=== PATIENT | male | born 1960 | race Caucasian/White ===

== ENCOUNTER 2020-04-30 08:57 | Outpatient (CLI) | payer MEDICARE, MEDICAID, SELFPAY ==
--- NOTE | ~2020-04-30 | NM_ITS ---
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 The patient was infused intravenously with Lexiscan (regadenoson). Then, 30 mCi Tc99m tet rofosmin (Myoview) was administered intravenously, and stress images were obtained. Data was reconstr ucted into short axis and horizontal and vertical long axis SPECT images. Gated SPECT images were als o obtained. COMPARISON: None. FINDINGS: There is no definite reversible or fixed perfusion abnormality to suggest ischemia or infar ction. There is no segmental wall motion abnormality. Left ventricular ejection fraction measures 5 6%. IMPRESSION: 1. No definite ischemia or infarct. 2. Decreased left ventricular ejection fraction measuring 56%. Reviewed, dictated and finalized at location A. R MAT MACHINE OPERATOR
--- NOTE | 2020-04-30 09:19 | EST_ITS ---
Patient Info Name: Geraldo Merida Age: 59 years : 1960 Gender: Male Ht: 72 in Wt: 290 lbs BSA: 2.64 m2 Exam Date: 04/30/2020 10:06 AM Exam Location: [facility] Stress Patient Status: Outpatient Admit Date: 04/30/2020 Staff Ordering Physician: Mann Xiong APRN Attending Provider: Mann Xiong APRN Exercise Technologist: Natalie Carlos RDCS Exercise Physician: Aquilino Magallon MD Exam Type: CA stress shiraz w NM Study Info Indications R07.9 - Chest pain, unspecified A regadenoson stress test was performed. Summary 1. Please correlate with nuclear medicine images, reported separately. 2. No abnormal ST-T wave changes with lexiscan. Protocol: Lexiscan Stress ECG Details Stage: REST Duration (min): 5 min : 31 sec HR (bpm): 90 SBP (mmHg): 149 DBP (mmHg): 79 Stage: REST Duration (min): 15 min : 12 sec HR (bpm): 90 SBP (mmHg): 149 DBP (mmHg): 79 Stage: STAGE 1 Duration (min): 1 min : 0 sec HR (bpm): 96 SBP (mmHg): 151 DBP (mmHg): 55 Stage: RECOVERY Duration (min): 1 min : 0 sec HR (bpm): 98 SBP (mmHg): 133 DBP (mmHg): 60 Stage: RECOVERY Duration (min): 2 min : 0 sec HR (bpm): 99 SBP (mmHg): 133 DBP (mmHg): 60 Stage: RECOVERY Duration (min): 3 min : 0 sec HR (bpm): 99 SBP (mmHg): 131 DBP (mmHg): 64 Stage: RECOVERY Duration (min): 3 min : 28 sec HR (bpm): 98 SBP (mmHg): 131 DBP (mmHg): 64 Rest HR: 90 bpm Peak HR: 100 bpm Rest Sys BP: 149 mmHg Peak Sys BP: 151 mmHg Max Pred HR: 160 bpm % Max Pred HR: 63 % Target HR: 136 bpm Max RPP: 15,100 bpm*mmHg Target HR Summary: Hemodynamic response to exercise was normal BP Response: Normal blood pressure response Termination Reason: Completed protocol Cardiac Symptoms: None Total Time: 1 min : 0 sec Rest Pate BP: 79 mmHg Peak Pate BP: 55 mmHg Total Dose: 0.4 mg Resting ECG Normal sinus rhythm. Stress ECG No abnormal ST/T wave changes with exercise. Arrhythmias None. Report Signatures
== END 2020-04-30 08:58 | disposition home or self-care (01) ==
PROVIDERS: Visit Provider Nurse Practitioner Family
DX: J44.9 Chronic obstructive pulmonary disease, unspecified (principal); R07.89 Other chest pain
CPT/HCPCS: 78452; 93017; A9502; J2785

== ENCOUNTER 2020-05-13 13:52 | Outpatient (CLI) | payer MEDICARE, MEDICAID, SELFPAY ==
[2020-05-13] VITALS (7 sets, daily range): PULSE 98–126; O2SAT 85–91
--- NOTE | 2020-05-13 14:18 | HOMEO2EVAL ---
Home Oxygen Evaluation RC: Home Oxygen (O2) Evaluation Start: 05/13/20 14:14 Freq: Status: Active Protocol: RPE Activity Type Activity Date Activity User E-Sign Co-Sign Detail Recorded Client Recorded Date Recorded By Document 05/13/20 13:30 [email or web address] [email or web address] 05/13/20 14:18 DJO Document 05/13/20 13:35 [email or web address] [email or web address] 05/13/20 14:18 DJO Document 05/13/20 13:40 [email or web address] [email or web address] 05/13/20 14:18 DJO Document 05/13/20 13:45 [email or web address] 05/13/20 14:18 DJO Document 05/13/20 13:50 [email or web address] [email or web address] 05/13/20 14:18 DJO Document 05/13/20 13:55 [email or web address] [email or web address] 05/13/20 14:18 DJO Document 05/13/20 14:10 [email or web address] [email or web address] 05/13/20 14:18 DJO 05/13/20 05/13/20 05/13/20 13:30 13:35 13:40 Home O2 Evaluation Test Phase Resting Resting Resting Oxygen Delivery Room Air Nasal Cannula Nasal Cannula Oxygen Flow Rate (L/min) 1 2 Pulse Oximetry (90-100 %) 85 L 86 L 87 L Pulse Rate (60-100 beats/min) 102 H 104 H 100 Activity Tolerance Rating of Perceived Dyspnea (PD) Ambulation Distance (feet) Treatment Charges O2 Evaluation 05/13/20 05/13/20 05/13/20 13:45 13:50 13:55 Home O2 Evaluation Test Phase Resting Exercise Exercise Oxygen Delivery Nasal Cannula Nasal Cannula Nasal Cannula Oxygen Flow Rate (L/min) 3 3 4 Pulse Oximetry (90-100 %) 90 87 L 90 Pulse Rate (60-100 beats/min) 98 120 H 126 H Activity Tolerance Poor Poor Rating of Perceived Dyspnea (PD) +3 Moderate +3 Moderate Difficulty, But Difficulty, But Can Continue Can Continue Ambulation Distance (feet) 400 Treatment Charges 05/13/20 14:10 Home O2 Evaluation Test Phase Resting Oxygen Delivery Nasal Cannula Oxygen Flow Rate (L/min) 3 Pulse Oximetry (90-100 %) 91 Pulse Rate (60-100 beats/min) Activity Tolerance Rating of Perceived Dyspnea (PD) Ambulation Distance (feet) Treatment Charges
== END 2020-05-13 13:53 | disposition home or self-care (01) ==
LOC: ANHPFT 13:52
PROVIDERS: Visit Provider Nurse Practitioner Family
DX: J44.9 Chronic obstructive pulmonary disease, unspecified (principal)
CPT/HCPCS: 94618